=== PATIENT | male | born 1960 | race African-American/Black ===

== ENCOUNTER 2017-05-20 23:53 | Emergency (ER) | payer OTHER ==
[~2017-05-20] VITALS: Ht 175.3 cm; Wt 102.1 kg
[~2017-05-20 23:53] MED LIST: ANUSOL-HC25 MG RECTAL; COLACE100 MG ORAL; MYLANTA GAS MA125 MG PO; NKM; OMEPRAZOLE40 M1 ORAL; RANITIDINE HCL150 MG ORAL
[2017-05-21 00:10] VITALS: BP 123/67
[2017-05-21] MEDS ORDERED: MEDROL4 M1 PO (00:26)
[2017-05-21] MEDS ORDERED: HYDROCODON-ACE1 EA15 ORAL (00:26)
--- NOTE | 2017-05-21 00:27 | Emergency Room Report ---
History of Present Illness General Chief Complaint: Back Pain-No Injury Source: Patient Present Illness HPI This is a 57-year-old male with history of back pain and sciatica. He was doing well for about a year since his surgery. The last couple days complaining of left lower back pain now writing down his left leg. He took a [place] from his and is not helping. No fever chills but no nausea no vomiting. No incontinence of bowel or urine. Pain is 9/10. Worse with certain position. Allergies: Coded Allergies: PENICILLINS (Unverified Allergy, Unknown, 05/24/14) Patient History Past Medical History: see triage record, old chart reviewed Past Surgical History: other Pertinent Family History: none Social History: Denies: smoking Immunizations: other Reviewed Nursing Documentation: PMH: Agreed, PSxH: Agreed Nursing Documentation-PMH Hx Cardiac Problems: Yes - chest pain Review of Systems Eye: Denies: eye pain, blurred vision ENT: Denies: ear pain, nose congestion, throat swelling Respiratory: Denies: cough, shortness of breath Cardiovascular: Denies: chest pain, palpitations Gastrointestinal: Denies: abdominal pain, diarrhea, nausea, vomiting Musculoskeletal: Reports: back pain, Denies: joint pain Skin: Denies: rash Neurological: Denies: headache, numbness Endocrine: Denies: increased thirst, increased urine Hematologic/Lymphatic: Denies: easy bruising All Other Systems: negative except mentioned in HPI Physical Exam Vital Signs Date Time Temp Pulse Resp B/P (MAP) Pulse Ox O2 Delivery O2 Flow Rate FiO2 05/21/17 00:08 97.9 77 18 123/67 98 Room Air vitals normal Sp02 EP Interpretation: reviewed, normal General Appearance: well appearing, no apparent distress, alert Head: normocephalic, atraumatic Eyes: bilateral eye PERRL, bilateral eye EOMI ENT: hearing grossly normal, normal pharynx Neck: full range of motion, supple, no meningismus Respiratory: chest non-tender, lungs clear, normal breath sounds Cardiovascular #1: regular rate, rhythm, no murmur Gastrointestinal: normal bowel sounds, non tender, no mass, no organomegaly, no bruit, non-distended Musculoskeletal: back normal, normal range of motion, other - Tenderness over the left lower back. No step-off. Neurologic: alert, oriented x3 Psychiatric: mood/affect normal Skin: warm/dry Medical Decision Making Diagnostic Impression: Primary Impression: Sciatica of left side ER Course Patient with back pain consistent with sciatica. No red flags indicate cauda equina syndrome, spinal epidural abscess or neoplastic process. Better after medication. We'll discharge home. Last Vital Signs Date Time Temp Pulse Resp B/P (MAP) Pulse Ox O2 Delivery O2 Flow Rate FiO2 05/21/17 00:10 97.9 71 18 123/67 98 Room Air Status: improved Disposition: HOME, SELF-CARE Condition: Stable Scripts Hydrocodone/Acetaminophen 5-325* (HYDROCODONE/ACETAMINOPHEN 5-325*) 1 Each Tablet 1 TAB ORAL Q6H Y for For Pain, #30 TAB 0 Refills Prov: ERNESTO ROBBINS M.D. 05/21/17 Methylprednisolone (MEDROL) 4 Mg Tab.ds.pk 4 MG PO DAILY, #1 PACK Prov: ERNESTO ROBBINS M.D. 05/21/17 Patient Instructions: Sciatica Additional Instructions: [facility] He may benefit from an MRI if symptoms don't improve. Return if symptom worsen. ERNESTO ROBBINS M.D. May 21, 2017 00:27
[2017-05-21] MEDS ORDERED: HYDROmorphone 1mg/ml Carpuject IM ONE (00:30)
[2017-05-21 00:54] VITALS: BP 123/67
== END 2017-05-21 01:00 | disposition home or self-care (01) ==
LOC: EMR 23:59
DX: M54.42 Lumbago with sciatica, left side (principal); Z88.0 Allergy status to penicillin
CPT/HCPCS: 96372; 99284; J1170

== ENCOUNTER 2018-01-12 21:51 | Emergency (ER) | payer OTHER ==
[~2018-01-12] VITALS: Ht 175.3 cm; Wt 102.1 kg
[~2018-01-12 21:51] MED LIST changes: +HYDROCODON-ACE1 EA15 ORAL; +MEDROL4 M1 PO
[2018-01-12] MEDS ORDERED: Norco 5mg/325mg tab ORAL ONE (22:45)
[2018-01-12 23:02] VITALS: BP 122/75
--- NOTE | 2018-01-12 23:47 | Emergency Room Report ---
History of Present Illness General Chief Complaint: Head, Face, Neck Trauma Source: Patient Present Illness HPI Is a 58-year-old male who had a history of seizure as a kid. He presents with chief complaint of head injury. He was getting a phone out of the back of his truck. Next thing he knew, he was on the ground. He said he was out for about a minute or 2. He felt dizzy and nauseous. He has pain to the back of his occiput. He also has pain across his upper chest that typically over his right clavicle area. There was a small abrasion to his chest area. No bleeding. No oral trauma or incontinence of bowel or urine. Pain is 10 out of 10. Allergies: Coded Allergies: PENICILLINS (Unverified Allergy, Unknown, 05/24/14) Patient History Past Medical History: see triage record, old chart reviewed Past Surgical History: other Pertinent Family History: none Social History: Denies: smoking Immunizations: other Reviewed Nursing Documentation: PMH: Agreed; PSxH: Agreed Nursing Documentation-PMH Hx Cardiac Problems: Yes - chest pain Review of Systems Eye: Denies: eye pain, blurred vision ENT: Denies: ear pain, nose congestion, throat swelling Respiratory: Denies: cough, shortness of breath Cardiovascular: Reports: chest pain; Denies: palpitations Gastrointestinal: Denies: abdominal pain, diarrhea, nausea, vomiting Musculoskeletal: Denies: back pain, joint pain Skin: Denies: rash Neurological: Reports: headache; Denies: numbness Endocrine: Denies: increased thirst, increased urine Hematologic/Lymphatic: Denies: easy bruising All Other Systems: negative except mentioned in HPI Physical Exam Vital Signs Date Time Temp Pulse Resp B/P (MAP) Pulse Ox O2 Delivery O2 Flow Rate FiO2 01/12/18 22:28 98.2 62 18 122/75 98 Room Air 98.2 vitals normal Sp02 EP Interpretation: reviewed, normal General Appearance: well appearing, no apparent distress, alert Head: normocephalic, other - tenderness over the occiput. No hematoma. Eyes: bilateral eye PERRL, bilateral eye EOMI ENT: hearing grossly normal, normal pharynx Neck: full range of motion, supple, no meningismus Respiratory: lungs clear, normal breath sounds, other - chest wall tenderness over both clavicles. Cardiovascular #1: regular rate, rhythm, no murmur Gastrointestinal: normal bowel sounds, non tender, no mass, no organomegaly, no bruit, non-distended Musculoskeletal: back normal, gait/station normal, normal range of motion Psychiatric: mood/affect normal Skin: warm/dry Medical Decision Making Diagnostic Impression: Primary Impression: Head injury, acute Qualified Codes: S09.90XA - Unspecified injury of head, initial encounter Additional Impressions: Post-concussion vertigo Chest wall contusion Qualified Codes: S20.219A - Contusion of unspecified front wall of thorax, initial encounter ER Course Patient with soft tissue injury and head injury from a fall. No evidence of any fracture dislocation. No bleed. I see no evidence of seizure. We'll discharge home. Chest X-Ray Diagnostic Results Chest X-Ray Diagnostic Results : Chest X-Ray Ordered: Yes # of Views/Limited/Complete: 2 View Indication: Chest Pain EP Interpretation: Yes Interpretation: no consolidation, no effusion, no pneumothorax, no acute cardiopulmonary disease Impression: No acute disease Electronically Signed by: Jeremy Sousa MD CT/MRI/US Diagnostic Results CT/MRI/US Diagnostic Results : Imaging Test Ordered: CT head Impression negative per radiologist Last Vital Signs Date Time Temp Pulse Resp B/P (MAP) Pulse Ox O2 Delivery O2 Flow Rate FiO2 01/12/18 23:02 98.8 81 18 122/75 98 Room Air 98.8 Status: improved Disposition: HOME, SELF-CARE Condition: Stable Scripts Ibuprofen* (MOTRIN*) 600 Mg Tablet 600 MG ORAL THREE TIMES A DAY, #30 TAB 0 Refills Prov: JEREMY SOUSA M.D. 01/12/18 Hydrocodone/Acetaminophen 5-325* (HYDROCODONE/ACETAMINOPHEN 5-325*) 1 Each Tablet 1 TAB ORAL Q6H PRN for For Pain, #20 TAB 0 Refills Prov: JEREMY SOUSA M.D. 01/12/18 Referrals: NOT CHOSEN CHRISTOPHER/,REFERRING (PCP) Additional Instructions: Follow-up your doctor in a week. Return if symptom worsen. JEREMY SOUSA M.D. Jan 12, 2018 23:47
[2018-01-12] MEDS ORDERED: HYDROCODON-ACE1 EA15 ORAL (23:56)
[2018-01-12] MEDS ORDERED: IBUPROFEN600 MG ORAL (23:56)
[2018-01-13 00:27] VITALS: BP 127/71
--- NOTE | 2018-01-13 09:42 | Diagnostic Imaging Report ---
Indication: Trauma, status post fall today, head pain, nausea, neck pain Technique: Continuous helical CT scanning of the head was performed without intravenous contrast material. Axial and coronal 5 mm sections were generated. Radiation dose was minimized using automated exposure control Dose: Total Dose Length Product - DLP 1453.[address] Dose Index - CTDIvol(s) 70.38 mGy. Comparison: none Findings: The ventricular system is normal in size and configuration. There is no shift of midline structures. No abnormal extra-axial fluid collections are noted. There is no evidence of intracerebral bleeding. No other abnormal high or low density areas are noted within the brain. Normal lópez-white differentiation. Intact calvarium. Visualized orbits and sinuses are unremarkable. There is chronic appearing deformity of the medial left orbital wall Impression: Normal CT scan of the head without contrast material. This agrees with the preliminary interpretation provided overnight by [facility] telerad[facility] service. The CT scanner at [facility] is accredited by the [employer] and the scans are performed using protocols designed to limit radiation exposure to as low as reasonably achievable to attain images of sufficient resolution adequate for diagnostic evaluation.
--- NOTE | 2018-01-13 09:50 | Diagnostic Imaging Report ---
Indication: Chest pain Technique: One view of the chest Comparison: 05/24/2017 Findings: Lungs and pleural spaces are clear. Heart size is normal. There is slight scalloping of the left hemidiaphragm. There is no significant interim change Impression: No acute process
== END 2018-01-13 00:05 | disposition home or self-care (01) ==
LOC: EMR 22:47 → CANBEDREQ 23:47 → EMR 01-13 00:05
DX: S09.90XA Unspecified injury of head, initial encounter (principal); S20.219A Contusion of unspecified front wall of thorax, initial encounter; W19.XXXA Unspecified fall, initial encounter; Y92.89 Other specified places as the place of occurrence of the external cause; Z88.0 Allergy status to penicillin
CPT/HCPCS: 70450; 71045; 99284

== ENCOUNTER 2018-09-12 19:00 | Emergency (ER) | payer OTHER ==
[~2018-09-12] VITALS: Ht 172.7 cm; Wt 102.1 kg
[~2018-09-12 19:00] MED LIST changes: +IBUPROFEN600 MG ORAL
[2018-09-12] MEDS ORDERED: SIMVASTATIN5 MG ORAL (19:07)
--- NOTE | 2018-09-12 19:36 | NUR ---
ED Nurse Note: Pimples on his face with pus x 1 week after using a new kind of cream, pt tried to squeeze pimple and new ones develop. AOx4, VSS. Will cont to monitor.
[2018-09-12 19:45] VITALS: BP 125/74
[2018-09-12] MEDS ORDERED: ROBAXIN500 MG PO (19:50)
[2018-09-12] MEDS ORDERED: ACYCLOVIR400 MG ORAL (19:50)
[2018-09-12] MEDS ORDERED: BACITRACIN-P28.35 GM TP (19:50)
--- NOTE | 2018-09-12 19:51 | Emergency Room Report ---
History of Present Illness General Chief Complaint: General Complaint Source: Patient Present Illness HPI 58-year-old male patient presents the ER complaining of bump on lip and back pain. Reports bump on the past been present for the past several days. Reports painful. Reports drainage. 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 Denies blisters. Also complaining of low back pain on the left side. Reports history of back pain problems for the past month. Denies acute injury or trauma. Reports that he lifts boxes a lot in his job. Denies bowel or bladder incontinence. Denies radiation of pain symptoms. Denies history of IV drug use or cancer. Denies dysuria, hematuria. Denies photophobia. Denies vision changes. Denies abdominal pain. Allergies: Coded Allergies: PENICILLINS (Unverified Allergy, Unknown, 05/24/14) Patient History Past Medical History: see triage record Reviewed Nursing Documentation: PMH: Agreed; PSxH: Agreed Nursing Documentation-PMH Hx Cardiac Problems: Yes - chest pain, HYPERLIPIDEMIA Review of Systems All Other Systems: negative except mentioned in HPI Physical Exam Vital Signs Date Time Temp Pulse Resp B/P (MAP) Pulse Ox O2 Delivery O2 Flow Rate FiO2 09/12/18 19:05 98.2 86 19 129/79 100 Room Air Sp02 EP Interpretation: reviewed, normal General Appearance: well appearing, no apparent distress, alert, GCS 15, non- toxic Head: normocephalic, atraumatic Eyes: bilateral eye normal inspection, bilateral eye PERRL ENT: hearing grossly normal, normal pharynx, no angioedema, normal voice, TMs + canals normal, uvula midline, moist mucus membranes Neck: full range of motion, no meningismus, no bony tend Respiratory: lungs clear, normal breath sounds, no rhonchi, no respiratory distress, no accessory muscle use, no wheezing, speaking full sentences Cardiovascular #1: regular rate, rhythm, no edema Gastrointestinal: non tender, soft, no mass, non-distended, no guarding, no rebound Genitourinary: no CVA tenderness Musculoskeletal: back normal, digits/nails normal, gait/station normal, normal range of motion, non-tender Neurologic: alert, oriented x3, responsive, motor strength/tone normal, SLR negative, sensory intact, cerebellar normal, normal gait, speech normal Skin: other - Obvious le[place] on left upper lip, no surrounding erythema or edema, no cold sores, no blisters; small drained pustule on the left cheek, no surrounding erythema or edema, no crusting, no bleeding, no vesicles Lymphatic: no adenopathy Medical Decision Making PA Attestation Dr. Larsen is my supervising Physician whom patient management has been discussed with. Diagnostic Impression: Primary Impression: Lip lesion Additional Impression: Back pain ER Course Pt presents to ED c/o back pain. DDX considered but are not limited to sprain, strain, cauda equine, epidural abscess, AAA, spinal cord compression, kidney stones, atopic dermatitis, gingivostomatitis, pharyngitis, acne, shingles, cold sore. Low suspicion for cauda equina, no bowel or bladder incontinence or retention. No fever, nontoxic appearing, no radiation of pain, low suspicion for epidural mass. No abdominal pain, no blood pressure elevation, nontoxic appearing, low suspicion for AAA. VITAL SIGNS are WNL, patient is afebrile ER COURSE: Likely acne on lip and face, advised patient on warm compresses and followup with dermatology. Advised on use of topical medication. Will provide patient with ayclovir due to hx of hsv. Likely chronic back pain, no acute trauma or injury, no other complaints, does not require imaging or UA at this time. Will discharge home with medication. Followup with PCP and discuss referral to PT/ortho/pain management and further imaging as needed. ER precautions given. DISCHARGE: At this time pt. is stable for d/c to home. At this time patient is resting comfortably, in no acute distress, nontoxic appearing, smiling and talking without difficulty. Will provide printed patient care instructions, and any necessary prescriptions. Patient instructed to follow with primary care provider for further treatment and referral as needed. Care plan and follow up instructions have been discussed with the patient prior to discharge. Patient reports understanding and agreement to treatment plan. Patient questions asked and answered. ER precautions given, patient instructed to return to ER immediately for any new or worsening of symptoms. - Please note that this Emergency Department Report was dictated using [employer] clerk technology software, occasionally this can lead to erroneous entry secondary to interpretation by the dictation equipment. Last Vital Signs Date Time Temp Pulse Resp B/P (MAP) Pulse Ox O2 Delivery O2 Flow Rate FiO2 09/12/18 19:45 86 19 Room Air 09/12/18 19:45 98.2 125/74 99 Status: improved Disposition: HOME, SELF-CARE Condition: Stable Scripts Methocarbamol* (ROBAXIN*) 500 Mg Tablet 500 MG PO TID, #21 TAB 0 Refills Prov: Liborio Torres 09/12/18 Bacitracin/Polymyxin B Sulfate (BACITRACIN-POLYMYXIN OINTMENT) 28.35 Gm Oint...g. 1 APPLIC TP BID, #28 GM Prov: Liborio Torres 09/12/18 Acyclovir* (ACYCLOVIR*) 400 Mg Tablet 400 MG ORAL FIVE TIMES A DAY for 7 Days, #35 TAB Prov: Liborio Torres 09/12/18 Patient Instructions: Acne, [id number], Back Pain, Adult, Cold Sore, Easy-to- Read Additional Instructions: Patient instructed to follow up with primary care provider 3-5 and discuss further referral and imaging at that time. Follow-up with retail sales representative. Apply warm compresses. Keep clean and dry. Patient instructed on rest, ice and heat. Do not take muscle relaxant prior to drinking, driving, or operating heavy machinery. Take medications as directed. Patient questions asked and answered. ER precautions given, patient instructed to return to ER immediately for any new or worsening of symptoms. [facility] [address] [facility] [address] [facility], [id number] [email or web address] Liborio Torres Sep 12, 2018 19:51
[2018-09-12 19:57] VITALS: BP 125/74
--- NOTE | 2018-09-12 19:57 | NUR ---
ER DISCHARGE NOTE: Patient is cleared to be discharged per ERMD, pt is aox4, on room air, with stable vital signs. pt was given dc and prescription instructions, pt was able to verbalize understanding, pt id band removed. pt is able to ambulate with steady gait. pt took all belongings.ED Nurse Note:
== END 2018-09-12 19:57 | disposition home or self-care (01) ==
LOC: EMR 19:32
DX: K13.0 Diseases of lips (principal); M54.9 Dorsalgia, unspecified; E78.5 Hyperlipidemia, unspecified; Z88.0 Allergy status to penicillin
CPT/HCPCS: 99283

== ENCOUNTER 2018-10-11 10:13 | Emergency (ER) | payer OTHER ==
[~2018-10-11] VITALS: Ht 172.7 cm; Wt 102.1 kg
[~2018-10-11 10:13] MED LIST changes: +ACYCLOVIR400 MG ORAL; +BACITRACIN-P28.35 GM TP; +ROBAXIN500 MG PO; +SIMVASTATIN5 MG ORAL
[2018-10-11 10:37] VITALS: BP 134/79
--- NOTE | 2018-10-11 10:38 | NUR ---
ED Nurse Note: Pt from home presents to ED with upper abd pain that radiates to his back started yesterday. Denies vomiting and diarrhea but feels nauseous. Last bowel movement this morning. Abdomen soft with bowel sounds. Pt is AAO x4, ambulates with steady gait. VSS.
[2018-10-11] MEDS ORDERED: Isovue-300 100ml vial INJ PRN (11:00)
--- NOTE | 2018-10-11 11:00 | NUR ---
ED Nurse Note: Blood/urine collected and sent.
[2018-10-11 11:10] LABS: BASOPHILS % (AUTO) 1.6 % (0.0-2.0); EOSINOPHILS % (AUTO) 1.4 % (0.0-3.0); HEMATOCRIT 42.5 % (42.0-52.0); HEMOGLOBIN 14.5 G/DL (14.2-18.0); LYMPHOCYTES % (AUTO) 32.6 % (20.0-45.0); MEAN CORPUSCULAR VOLUME 94 FL (80-99); MONOCYTES % (AUTO) 14.6 % (1.0-10.0); NEUTROPHILS % (AUTO) 49.8 % (45.0-75.0); PLATELET COUNT 218 K/UL (150-450); RED BLOOD COUNT 4.52 M/UL (4.70-6.10)
--- NOTE | 2018-10-11 11:15 | NUR ---
ED Nurse Note: Dr Larsen at the bed side.
[2018-10-11 11:16] LABS: APPEARANCE,URINE CLEAR; BILIRUBIN, URINE NEGATIVE (NEGATIVE); COLOR,URINE PALE YELLOW; GLUCOSE, URINE (UA) NEGATIVE (NEGATIVE); KETONES,URINE NEGATIVE (NEGATIVE); LEUKOCYTE ESTERASE ,URINE NEGATIVE (NEGATIVE); NITRITE,URINE NEGATIVE (NEGATIVE); PH,URINE 7 (4.5-8.0); PROTEIN,URINE NEGATIVE (NEGATIVE); UROBILINOGEN,URINE NORMAL MG/DL (0.0-1.0)
[2018-10-11 11:24] LABS: ANION GAP 9 mmol/L (5-15); BLOOD UREA NITROGEN 15 mg/dL (7-18); CALCIUM 9.3 MG/DL (8.5-10.1); CARBON DIOXIDE 28 MMOL/L (21-32); CHLORIDE 106 MMOL/L (98-107); CREATININE 1.1 MG/DL (0.55-1.30); POTASSIUM 4.2 MMOL/L (3.5-5.1); SODIUM 143 MMOL/L (136-145)
[2018-10-11] MEDS ORDERED: Ketorolac 30mg Inj IV ONE (11:30)
[2018-10-11 11:31] LABS: ALANINE AMINOTRANSFERASE 32 U/L (12-78); ALBUMIN 3.6 G/DL (3.4-5.0); ALKALINE PHOSPHATASE 66 U/L (46-116); ASPARTATE AMINO TRANSFERASE 21 U/L (15-37); BILIRUBIN,TOTAL 0.3 MG/DL (0.2-1.0); CREATINE KINASE 411 U/L (26-308)
--- NOTE | 2018-10-11 11:55 | Emergency Room Report ---
History of Present Illness General Chief Complaint: Abdominal Pain Source: Patient Present Illness HPI Patient states that he has had several weeks of back pain. He states that since yesterday he has developed abdominal pain. He states the pain is crampy and severe at times. He feels like the pain is deep in his abdomen. He states he is also had urinary frequency all night. He denies fever or chills. He denies nausea or vomiting. He states he had a normal bowel movement today without difficulty. He denies dysuria or hematuria. He denies chest pain or shortness of breath. He has no other complaints. Allergies: Coded Allergies: PENICILLINS (Unverified Allergy, Unknown, 05/24/14) Patient History Past Medical History: other - HLP, borderline DM Past Surgical History: other - Spinal surgery Social History: Denies: smoking, alcohol use, drug use Reviewed Nursing Documentation: PMH: Agreed; PSxH: Agreed Nursing Documentation-PMH Hx Cardiac Problems: Yes - chest pain, HYPERLIPIDEMIA Review of Systems All Other Systems: negative except mentioned in HPI Physical Exam Vital Signs Date Time Temp Pulse Resp B/P (MAP) Pulse Ox O2 Delivery O2 Flow Rate FiO2 10/11/18 10:25 97.9 66 16 138/84 98 Room Air Sp02 EP Interpretation: reviewed, normal General Appearance: no apparent distress, alert, GCS 15, non-toxic Head: normocephalic, atraumatic Eyes: bilateral eye normal inspection, bilateral eye PERRL ENT: hearing grossly normal, normal pharynx, no angioedema, normal voice Neck: full range of motion, supple/symm/no masses Respiratory: chest non-tender, lungs clear, normal breath sounds, no respiratory distress, no retraction, no accessory muscle use, speaking full sentences Cardiovascular #1: regular rate, rhythm, no edema Gastrointestinal: normal bowel sounds, soft, non-distended, no guarding, no rebound, tenderness - TTP in the mid abdomen Rectal: deferred Musculoskeletal: back normal, gait/station normal, normal range of motion, non- tender Neurologic: alert, oriented x3, responsive, motor strength/tone normal, sensory intact, speech normal Psychiatric: judgement/insight normal, memory normal, mood/affect normal, no suicidal/homicidal ideation Skin: normal color, no rash, warm/dry, well hydrated Medical Decision Making Diagnostic Impression: Primary Impression: Diverticulits vs. colitis ER Course This patient has inflammatory findings of the descending colon. This is diffusely through the ascending colon. This could be a diverticulitis because there are some associated diverticula, however, the swelling is diffuse and is more consistent with colitis. The treatment is similar. I will go ahead and treat this patient with a course of Cipro and Flagyl. The patient was also given close return precautions. Overall he is nontoxic and well-appearing. I feel he is appropriate for outpatient therapy at this time. The patient was comfortable with the plan. He plans to return for any worsening symptoms. Laboratory Tests Test 10/11/18 10:50 White Blood Count 6.0 K/UL (4.8-10.8) Red Blood Count 4.52 M/UL (4.70-6.10) L Hemoglobin 14.5 G/DL (14.2-18.0) Hematocrit 42.5 % (42.0-52.0) Mean Corpuscular Volume 94 FL (80-99) Mean Corpuscular Hemoglobin 32.0 PG (27.0-31.0) H Mean Corpuscular Hemoglobin Concent 34.1 G/DL (32.0-36.0) Red Cell Distribution Width 12.0 % (11.6-14.8) Platelet Count 218 K/UL (150-450) Mean Platelet Volume 6.6 FL (6.5-10.1) Neutrophils (%) (Auto) 49.8 % (45.0-75.0) Lymphocytes (%) (Auto) 32.6 % (20.0-45.0) Monocytes (%) (Auto) 14.6 % (1.0-10.0) H Eosinophils (%) (Auto) 1.4 % (0.0-3.0) Basophils (%) (Auto) 1.6 % (0.0-2.0) Prothrombin Time 10.5 SEC (9.30-11.50) Prothrombin Time INR 1.0 (0.9-1.1) PTT 31 SEC (23-33) Urine Color Pale yellow Urine Appearance Clear Urine pH 7 (4.5-8.0) Urine Specific [place] 1.005 (1.005-1.035) Urine Protein Negative (NEGATIVE) Urine Glucose (UA) Negative (NEGATIVE) Urine Ketones Negative (NEGATIVE) Urine Blood Negative (NEGATIVE) Urine Nitrite Negative (NEGATIVE) Urine Bilirubin Negative (NEGATIVE) Urine Urobilinogen Normal MG/DL (0.0-1.0) Urine Leukocyte Esterase Negative (NEGATIVE) Sodium Level 143 MMOL/L (136-145) Potassium Level 4.2 MMOL/L (3.5-5.1) Chloride Level 106 MMOL/L (98-107) Carbon Dioxide Level 28 MMOL/L (21-32) Anion Gap 9 mmol/L (5-15) Blood Urea Nitrogen 15 mg/dL (7-18) Creatinine 1.1 MG/DL (0.55-1.30) Estimate Glomerular Filtration Rate > 60 mL/min (>60) Glucose Level 106 MG/DL (74-106) Calcium Level 9.3 MG/DL (8.5-10.1) Total Bilirubin 0.3 MG/DL (0.2-1.0) Aspartate Amino Transferase (AST) 21 U/L (15-37) Alanine Aminotransferase (ALT) 32 U/L (12-78) Alkaline Phosphatase 66 U/L (46-116) Total Creatine Kinase 411 U/L (26-308) H Troponin I 0.015 ng/mL (0.000-0.056) Total Protein 7.3 G/DL (6.4-8.2) Albumin 3.6 G/DL (3.4-5.0) Globulin 3.7 g/dL Albumin/Globulin Ratio 1.0 (1.0-2.7) Lipase 116 U/L (73-393) CT/MRI/US Diagnostic Results CT/MRI/US Diagnostic Results : Imaging Test Ordered: CT abd/pelvis Impression Impression: Limited assessment of the GI tract, due to lack of enteric contrast administration Mild wall thickening of and indistinctness of the fat surrounding the ascending colon. Given the presence of colonic diverticula in this area, findings could represent acute diverticulitis. However, the wall thickening is more generalized , and more likely represents colitis, nonspecific as regards etiology No evidence of acute aortic pathology. Subcentimeter low-attenuation right lobe liver lesion, too small to characterize , most likely a benign simple cyst or bile hamartoma; not definitely visible on prior study. No further follow-up needed Other incidental findings noted, including right groin heterotopic ossification, minimal dependent pulmonary atelectatic changes Last Vital Signs Date Time Temp Pulse Resp B/P (MAP) Pulse Ox O2 Delivery O2 Flow Rate FiO2 10/11/18 10:37 97.9 55 20 134/79 100 Room Air Status: improved Disposition: HOME, SELF-CARE Condition: Improved Caren Larsen DO Oct 11, 2018 11:55
--- NOTE | 2018-10-11 12:18 | NUR ---
ED Nurse Note: Patient taken to CT via gurney.
[2018-10-11 12:30] VITALS: BP 145/80
--- NOTE | 2018-10-11 12:35 | NUR ---
ED Nurse Note: Pt came back from CT. VSS.
--- NOTE | 2018-10-11 12:57 | Diagnostic Imaging Report ---
Clinical Indication: Abdominal pain since yesterday, crampy and severe at times, deep in his abdomen, urinary frequency, back pain for several weeks Technique: No oral contrast utilized, per emergency room physician request. IV administration nonionic contrast. Venous phase spiral acquisition obtained through the abdomen and pelvis. Multiplanar reconstructions were generated. Total dose length product 968.43 mGycm. CTDIvol(s) 17.93 mGy. Dose reduction achieved using automated exposure control Comparison: 06/13/2016 Findings: Lack of enteric contrast limits assessment of the GI tract. There is diverticulosis of the colon, predominantly involving the ascending colon. There is mild wall thickening of the ascending colon possibly extending slightly to the transverse colon, and indistinctness of the pericolonic fat surrounding the ascending colon. No extraluminal gas or focal fluid collections are demonstrated. The appendix is normal. No small bowel distention. No free or loculated intraperitoneal gas or fluid is evident. The distal esophagus, stomach, duodenum are unremarkable. The liver demonstrates a subcentimeter low-attenuation lesion in segment 5. The gallbladder, bile ducts, pancreas, spleen, adrenals are unremarkable. No pelvic mass or adenopathy. No retroperitoneal or mesenteric mass or adenopathy. The abdominal aorta is unremarkable. The included lung bases demonstrate minimal dependent atelectatic changes posteriorly bilaterally. The bones are unremarkable. There is some heterotopic ossification anterior to the right proximal femur, also reported previously. Impression: Limited assessment of the GI tract, due to lack of enteric contrast administration Mild wall thickening of and indistinctness of the fat surrounding the ascending colon. Given the presence of colonic diverticula in this area, findings could represent acute diverticulitis. However, the wall thickening is more generalized, and more likely represents colitis, nonspecific as regards etiology No evidence of acute aortic pathology. Subcentimeter low-attenuation right lobe liver lesion, too small to characterize, most likely a benign simple cyst or bile hamartoma; not definitely visible on prior study. No further follow-up needed Other incidental findings noted, including right groin heterotopic ossification, minimal dependent pulmonary atelectatic changes The CT scanner at [facility] is accredited by the [employer] and the scans are performed using protocols designed to limit radiation exposure to as low as reasonably achievable to attain images of sufficient resolution adequate for diagnostic evaluation.
[2018-10-11] MEDS ORDERED: CIPROFLOXACIN500 M2 ORAL (14:14)
[2018-10-11] MEDS ORDERED: IBUPROFEN800 MG ORAL (14:14)
[2018-10-11] MEDS ORDERED: TRAMADOL HCL50 MG ORAL (14:14)
[2018-10-11] MEDS ORDERED: METRONIDAZOLE500 MG ORAL (14:14)
[2018-10-11 14:22] VITALS: BP 154/90
--- NOTE | 2018-10-11 14:22 | NUR ---
ER DISCHARGE NOTE: Patient is cleared to be discharged per ERMD, pt is aox4, on room air, with stable vital signs. pt was given dc and prescription instructions, pt was able to verbalize understanding, pt id band and iv site removed without complications. pt is able to ambulate with steady gait. pt took all belongings.
== END 2018-10-11 14:22 | disposition home or self-care (01) ==
LOC: EMR 11:43
DX: R10.9 Unspecified abdominal pain (principal); M54.9 Dorsalgia, unspecified; E78.5 Hyperlipidemia, unspecified; E11.9 Type 2 diabetes mellitus without complications; Z88.0 Allergy status to penicillin; R35.0 Frequency of micturition; K57.90 Diverticulosis of intestine, part unspecified, without perforation or abscess without bleeding
CPT/HCPCS: 36415; 74177; 80053; 81003; 82550; 83690; 84484; 85025; 85610; 85730; 96361; 96374; 99284; J1885; Q9967

== ENCOUNTER 2018-11-01 22:29 | Emergency (ER) | payer OTHER ==
[~2018-11-01] VITALS: Ht 172.7 cm; Wt 103.4 kg
[~2018-11-01 22:29] MED LIST changes: +CIPROFLOXACIN500 M2 ORAL; +IBUPROFEN800 MG ORAL; +METRONIDAZOLE500 MG ORAL; +TRAMADOL HCL50 MG ORAL
[2018-11-01 22:30] VITALS: BP 132/86
[2018-11-01] MEDS ORDERED: ATORVASTATIN CA20 MG ORAL (22:34)
--- NOTE | 2018-11-01 22:37 | NUR ---
ED Nurse Note: Received report. Pt from home, ambulatory, AAOx4, c/o tender/swollen nose, recurrent styes, blackheads within nose, on left eye and abscess under left armpit. Will carry out ER MD's orders.
[2018-11-01] MEDS ORDERED: Bactrim-DS 1 tab ORAL ONE (23:00)
[2018-11-01] MEDS ORDERED: BACTRIM DS TAB1 EAC1 ORAL (23:07)
[2018-11-01] MEDS ORDERED: IBUPROFEN600 MG ORAL (23:07)
[2018-11-01] MEDS ORDERED: MUPIROCIN22 GM TOPIC (23:07)
--- NOTE | 2018-11-01 23:08 | Emergency Room Report ---
History of Present Illness General Chief Complaint: General Complaint Source: Patient Present Illness HPI Is a 58-year-old male with a history of hyperlipidemia. He presents with chief complaint of nose pain, chin pain, left arm pain. Onset for last 2 days. No fever chills but no nausea no vomiting. No drainage. Denies any other complaint. Pain is 8 out of 10. Allergies: Coded Allergies: PENICILLINS (Unverified Allergy, Unknown, 05/24/14) Patient History Past Medical History: see triage record, old chart reviewed Past Surgical History: none Pertinent Family History: none Social History: Denies: smoking Immunizations: other Reviewed Nursing Documentation: PMH: Agreed; PSxH: Agreed Nursing Documentation-PMH Past Medical History: No History, Except For Hx Cardiac Problems: Yes - hyperlidemia Review of Systems Eye: Denies: eye pain, blurred vision ENT: Denies: ear pain, nose congestion, throat swelling Respiratory: Denies: cough, shortness of breath Cardiovascular: Denies: chest pain, palpitations Gastrointestinal: Denies: abdominal pain, diarrhea, nausea, vomiting Musculoskeletal: Denies: back pain, joint pain Skin: Reports: lesions; Denies: rash Neurological: Denies: headache, numbness Endocrine: Denies: increased thirst, increased urine Hematologic/Lymphatic: Denies: easy bruising All Other Systems: negative except mentioned in HPI Physical Exam Vital Signs Date Time Temp Pulse Resp B/P (MAP) Pulse Ox O2 Delivery O2 Flow Rate FiO2 11/01/18 22:30 98.1 97 18 95 Room Air vitals unremarkable Sp02 EP Interpretation: reviewed, normal General Appearance: well appearing, no apparent distress, alert Head: normocephalic, atraumatic Eyes: bilateral eye PERRL, bilateral eye EOMI ENT: hearing grossly normal, normal pharynx Neck: full range of motion, supple, no meningismus Respiratory: chest non-tender, lungs clear, normal breath sounds Cardiovascular #1: regular rate, rhythm, no murmur Gastrointestinal: normal bowel sounds, non tender, no mass, no organomegaly, no bruit, non-distended Musculoskeletal: back normal, gait/station normal, normal range of motion Neurologic: alert, oriented x3 Psychiatric: mood/affect normal Skin: warm/dry, other - Nose: He has a small pinpoint abscess to the septum and tip of the nose on the right side. Procedures Incision and Drainage Incision and Drainage : Consent: Verbal Site: Left axilla and chin Blade Size: 11 I & D Procedure: betadine prep Wound Location: face, upper extremity Anesthesia: 1% Lidocaine Volume Anesthetic (ccs): 2 Patient Tolerated: Well Complications: None Progress Area clean with Betadine. Local anesthetic 1% lidocaine without epinephrine injected. I made a small incision to the chin and left axilla. There is only scant amount of pus expressed. Patient tolerated procedure without any complication. Medical Decision Making Diagnostic Impression: Primary Impression: Abscess of nose Additional Impressions: Abscess of chin Abscess of axilla, left ER Course Patient with superficial abscess. No deep infection. Most likely MRSA. We'll discharge home. Last Vital Signs Date Time Temp Pulse Resp B/P (MAP) Pulse Ox O2 Delivery O2 Flow Rate FiO2 11/01/18 22:52 97 18 Room Air 11/01/18 22:30 98.1 95 Status: improved Disposition: HOME, SELF-CARE Condition: Stable Scripts Mupirocin* (MUPIROCIN*) 22 Gm Oint...g. 1 APPLIC TOPIC THREE TIMES A DAY, #22 GM Prov: Jeremy Sousa MD 11/01/18 Ibuprofen* (MOTRIN*) 600 Mg Tablet 600 MG ORAL THREE TIMES A DAY, #30 TAB 0 Refills Prov: Jeremy Sousa MD 11/01/18 Trimethoprim/Sulfamethoxazole 160/800* (BACTRIM DS TABLET*) 1 Each Tablet 1 TAB ORAL Q12H, #14 TAB 0 Refills Prov: Jeremy Sousa MD 11/01/18 Referrals: [facility],REFERRING (PCP) Additional Instructions: Follow-up with your in 2 to 3 days for recheck. Keep wound clean. Clean with hydrogen peroxide first and then apply antibiotic ointment. Return if worse. Jeremy Sousa MD November 01, 2018 23:08
[2018-11-01] MEDS ORDERED: Bacitracin Oint UD TOPIC ONE (23:25)
[2018-11-01] MEDS ORDERED: Bactrim-DS 1 tab ONE (23:31)
--- NOTE | 2018-11-01 23:32 | NUR ---
ED Nurse Note: Pt cleared by health care Provider for discharge. DC instructions/prescription was given and explained to pt and verbalized understanding of teachings. All medical deviecs such as ID band removed. Pt is AAO x4, ambulatory and left with all personal belongings.
== END 2018-11-01 23:17 | disposition home or self-care (01) ==
LOC: EMR 22:51
DX: J34.0 Abscess, furuncle and carbuncle of nose (principal); L02.01 Cutaneous abscess of face; L02.412 Cutaneous abscess of left axilla; E78.5 Hyperlipidemia, unspecified; Z88.0 Allergy status to penicillin
CPT/HCPCS: 99283

== ENCOUNTER 2019-05-06 23:35 | Emergency (ER) | payer OTHER ==
[~2019-05-06] VITALS: Ht 175.3 cm; Wt 100.2 kg
[~2019-05-06 23:35] MED LIST changes: +ATORVASTATIN CA20 MG ORAL; +BACTRIM DS TAB1 EAC1 ORAL; +MUPIROCIN22 GM TOPIC
--- NOTE | 2019-05-06 23:49 | NUR ---
ED Nurse Note: pt presents to ED with an abscess in his R underarm x3 days. pt rates the px 5/10 that hurts when his clothes rub agaisnt it. pt has had a similar problem in the past with an abscess in his left underarm. pt reports he put cold sore gel on the abscess and it helped with the px. the abscess is 1cm long, red and swollen. pt states he felt "something hard" in it.
[2019-05-06 23:52] VITALS: BP 129/82
[2019-05-07] MEDS ORDERED: BACTRIM DS TAB1 EAC1 ORAL (00:03)
--- NOTE | 2019-05-07 00:04 | Emergency Room Report ---
History of Present Illness General Chief Complaint: Skin Rash/Abscess Source: Patient Present Illness HPI Is a 59-year-old male with no significant past medical history. Presents with an abscess to his left armpit. Onset for last 3 days. He try to squeeze it. Nothing coming out. Tender to palpation. Some swelling. No drainage. No fever chills. Has history of abscess in the past. Allergies: Coded Allergies: PENICILLINS (Unverified Allergy, Unknown, 05/24/14) Patient History Past Medical History: see triage record, old chart reviewed Past Surgical History: none Pertinent Family History: none Social History: Denies: smoking Immunizations: other Reviewed Nursing Documentation: PMH: Agreed; PSxH: Agreed Nursing Documentation-PMH Past Medical History: No Stated History Hx Cardiac Problems: Yes - hyperlidemia Review of Systems Eye: Denies: eye pain, blurred vision ENT: Denies: ear pain, nose congestion, throat swelling Respiratory: Denies: cough, shortness of breath Cardiovascular: Denies: chest pain, palpitations Gastrointestinal: Denies: abdominal pain, diarrhea, nausea, vomiting Musculoskeletal: Denies: back pain, joint pain Skin: Denies: rash Neurological: Denies: headache, numbness Endocrine: Denies: increased thirst, increased urine Hematologic/Lymphatic: Denies: easy bruising All Other Systems: negative except mentioned in HPI Physical Exam Vital Signs Date Time Temp Pulse Resp B/P (MAP) Pulse Ox O2 Delivery O2 Flow Rate FiO2 05/06/19 23:39 97.9 79 18 129/82 (98) 96 Room Air Vitals normal Sp02 EP Interpretation: reviewed, normal General Appearance: well appearing, no apparent distress, alert Head: normocephalic, atraumatic Eyes: bilateral eye PERRL, bilateral eye EOMI ENT: hearing grossly normal, normal pharynx Neck: full range of motion, supple, no meningismus Respiratory: chest non-tender, lungs clear, normal breath sounds Cardiovascular #1: regular rate, rhythm, no murmur Gastrointestinal: normal bowel sounds, non tender, no mass, no organomegaly, no bruit, non-distended Musculoskeletal: back normal, gait/station normal, normal range of motion, other - Right axilla: There is a small indurated area about 1 cm. Psychiatric: mood/affect normal Procedures Incision and Drainage Incision and Drainage : Consent: Verbal Site: Right axilla Blade Size: 11 I & D Procedure: betadine prep Wound Location: upper extremity Anesthesia: 1% Lidocaine Volume Anesthetic (ccs): 3 Patient Tolerated: Well Complications: None Progress Cleaned with Betadine. Local anesthetic with 1% lidocaine. I made a 1 cm incision. Small amount of pus expressed. Likely the area explore broken up. Dressing placed. Patient tolerated seizure without any problem. Medical Decision Making Diagnostic Impression: Primary Impression: Axillary abscess ER Course This patient presents with small superficial abscess to the right axilla. Most likely MRSA. No evidence of deep infection or necrotizing fasciitis. Will discharge home. Last Vital Signs Date Time Temp Pulse Resp B/P (MAP) Pulse Ox O2 Delivery O2 Flow Rate FiO2 05/06/19 23:52 97.9 18 129/82 96 Room Air 05/06/19 23:39 79 Status: improved Disposition: HOME, SELF-CARE Condition: Stable Scripts Trimethoprim/Sulfamethoxazole 160/800* (BACTRIM DS TABLET*) 1 Each Tablet 1 TAB ORAL Q12H, #14 TAB 0 Refills Prov: Jeremy Sousa MD 05/07/19 Patient Instructions: Abscess Additional Instructions: Keep Wound clean. Clean first with hydrogen peroxide and then apply antibiotic ointment. Follow-up with your doctor in 3 to 5 days for recheck. Return if worse. Jeremy Sousa MD May 07, 2019 00:04
[2019-05-07 00:10] VITALS: BP 129/82
--- NOTE | 2019-05-07 00:10 | NUR ---
ER DISCHARGE NOTE: Patient is cleared to be discharged per ERMD, pt is aox4, on room air, with stable vital signs. pt was given dc and prescription instructions, pt was able to verbalize understanding, pt id band removed without complications. pt is able to ambulate with steady gait. pt took all belongings.
== END 2019-05-07 00:10 | disposition home or self-care (01) ==
LOC: EMR 05-07 00:05
DX: L02.411 Cutaneous abscess of right axilla (principal); E78.5 Hyperlipidemia, unspecified; Z88.0 Allergy status to penicillin
CPT/HCPCS: 99283

== ENCOUNTER 2019-11-25 02:04 | Emergency (ER) | payer OTHER ==
[~2019-11-25] VITALS: Ht 172.7 cm; Wt 104.3 kg
[2019-11-25] MEDS ORDERED: Dicyclomine HCl 10mg/5ml oral soln ORAL ONE (02:30)
[2019-11-25] MEDS ORDERED: Lidocaine 2% Visc 15ml soln ORAL ONE (02:30)
[2019-11-25] MEDS ORDERED: Mylanta II UD 30ml ORAL ONE (02:30)
[2019-11-25 03:00] VITALS: BP 123/74
[2019-11-25 03:16] LABS: BASOPHILS % (AUTO) 1.3 % (0.0-2.0); EOSINOPHILS % (AUTO) 2.6 % (0.0-3.0); HEMATOCRIT 36.7 % (42.0-52.0); HEMOGLOBIN 13.6 G/DL (14.2-18.0); LYMPHOCYTES % (AUTO) 50.8 % (20.0-45.0); MEAN CORPUSCULAR VOLUME 88 FL (80-99); MONOCYTES % (AUTO) 15.8 % (1.0-10.0); NEUTROPHILS % (AUTO) 29.5 % (45.0-75.0); PLATELET COUNT 260 K/UL (150-450); RED BLOOD COUNT 4.18 M/UL (4.70-6.10); RED CELL DISTRIBUTION WIDTH 10.6 % (11.6-14.8); WHITE BLOOD COUNT 4.8 K/UL (4.8-10.8)
[2019-11-25 03:25] LABS: ANION GAP 9 mmol/L (5-15); BLOOD UREA NITROGEN 17 mg/dL (7-18); CALCIUM 8.8 MG/DL (8.5-10.1); CARBON DIOXIDE 28 MMOL/L (21-32); CHLORIDE 106 MMOL/L (98-107); CREATININE 1.4 MG/DL (0.55-1.30); POTASSIUM 3.9 MMOL/L (3.5-5.1); SODIUM 143 MMOL/L (136-145)
[2019-11-25 03:29] LABS: ALANINE AMINOTRANSFERASE 38 U/L (12-78); ALBUMIN 3.7 G/DL (3.4-5.0); ALBUMIN/GLOBULIN RATIO 1.1 (1.0-2.7); ALKALINE PHOSPHATASE 66 U/L (46-116); ASPARTATE AMINO TRANSFERASE 26 U/L (15-37); BILIRUBIN,TOTAL 0.4 MG/DL (0.2-1.0)
[2019-11-25] MEDS ORDERED: CIPROFLOXACIN500 M2 ORAL (04:10)
[2019-11-25] MEDS ORDERED: ONDANSETRON ODT4 MG BC (04:10)
[2019-11-25] MEDS ORDERED: IBUPROFEN600 M1 ORAL (04:10)
[2019-11-25] MEDS ORDERED: DICYCLOMINE HCL10 MG ORAL (04:10)
[2019-11-25] MEDS ORDERED: LIDODERM700 M1 TOPIC (04:10)
[2019-11-25] MEDS ORDERED: Ketorolac 30mg Inj IV ONE (04:15)
[2019-11-25 04:30] VITALS: BP 134/69
[2019-11-25 04:45] VITALS: BP 134/69
--- NOTE | 2019-11-25 05:21 | Emergency Room Report ---
History of Present Illness General Chief Complaint: Abdominal Pain Source: Patient Present Illness HPI 59-year-old male presents ED for abdominal pain. Started yesterday morning. Pain is cramping, 5 out of 10, nonradiating. Notes multiple loose stools. Notes nausea, denies vomiting. Denies fevers or chills. Denies sick contacts or recent travel. No other aggravating relieving factors. Denies any other associated symptoms Allergies: Coded Allergies: PENICILLINS (Unverified Allergy, Unknown, 05/24/14) COVID-19 Screening Contact w/high risk pt: No Recent Travel to affected area: No Experienced COVID-19 symptoms?: No COVID-19 Testing performed WE[employer]OD[employer]ER: No Patient History Past Medical History: none Past Surgical History: none Pertinent Family History: none Social History: Denies: smoking, alcohol use, drug use Immunizations: UTD Reviewed Nursing Documentation: PMH: Agreed; PSxH: Agreed Nursing Documentation-PMH Hx Cardiac Problems: Yes - hyperlidemia Review of Systems All Other Systems: negative except mentioned in HPI Physical Exam Vital Signs Date Time Temp Pulse Resp B/P (MAP) Pulse Ox O2 Delivery O2 Flow Rate FiO2 11/25/19 02:17 98.4 95 16 117/86 (96) 96 Room Air Sp02 EP Interpretation: reviewed, normal General Appearance: no apparent distress, alert, GCS 15, non-toxic Head: normocephalic, atraumatic Eyes: bilateral eye normal inspection, bilateral eye PERRL ENT: hearing grossly normal, normal pharynx, no angioedema, normal voice Neck: full range of motion, supple/symm/no masses Respiratory: chest non-tender, lungs clear, normal breath sounds, speaking full sentences Cardiovascular #1: regular rate, rhythm, no edema Cardiovascular #2: 2+ carotid (R), 2+ carotid (L), 2+ radial (R), 2+ radial (L) , 2+ dorsalis pedis (R), 2+ dorsalis pedis (L) Gastrointestinal: normal bowel sounds, non tender, soft, non-distended, no guarding, no rebound Rectal: deferred Genitourinary: normal inspection, no CVA tenderness Musculoskeletal: back normal, normal range of motion, gait/station normal, non- tender Neurologic: alert, motor strength/tone normal, oriented x3, sensory intact, responsive, speech normal Psychiatric: judgement/insight normal, memory normal, mood/affect normal, no suicidal/homicidal ideation Reflexes: 3+ bicep (R), 3+ bicep (L), 3+ tricep (R), 3+ tricep (L), 3+ knee (R) , 3+ knee (L) Lymphatic: no adenopathy Medical Decision Making Diagnostic Impression: Primary Impression: Back pain Qualified Codes: M54.5 - Low back pain; G89.29 - Other chronic pain Additional Impression: Colitis ER Course Hospital Course 59-year-old M presents to ED with cramping abdominal pain with diarrhea differential diagnosis: gastritis, SBO, cholecystits, gastroenteritis Clinical course Patient placed on stretcher. On reading intervention teacher. After initial history and physical I ordered labs, IV fluids, Zofran, GI cocktail and pepcid Labs - no leukocytosis, electrolytes ok Patient also describing back pain which is chronic. Currently on Flexeril for pain. No focal deficits. Given Lidoderm and Toradol here with pain improved. Discussed findings with patient. Safe for discharge close outpatient follow- up. States he has a PMD I feel this is a highly complex case requiring extensive working including EKG/ Rhythm strip, Xray/CT/US, Blood/urine lab work, repeat exams while in ED, and administration of strong opiates/narcotics for pain control, admission to hospital or close patient follow up. Diagnosis - back pain, colitis Stable and discharged to home with prescriptions for Cipro,Bentyl, zofran, Motrin, Lidoderm. Followup with PMD. Return to ED if symptoms recur or worsen Labs Test 11/25/19 02:30 White Blood Count 4.8 K/UL (4.8-10.8) Red Blood Count 4.18 M/UL (4.70-6.10) Hemoglobin 13.6 G/DL (14.2-18.0) Hematocrit 36.7 % (42.0-52.0) Mean Corpuscular Volume 88 FL (80-99) Mean Corpuscular Hemoglobin 32.4 PG (27.0-31.0) Mean Corpuscular Hemoglobin Concent 37.0 G/DL (32.0-36.0) Red Cell Distribution Width 10.6 % (11.6-14.8) Platelet Count 260 K/UL (150-450) Mean Platelet Volume 6.0 FL (6.5-10.1) Neutrophils (%) (Auto) 29.5 % (45.0-75.0) Lymphocytes (%) (Auto) 50.8 % (20.0-45.0) Monocytes (%) (Auto) 15.8 % (1.0-10.0) Eosinophils (%) (Auto) 2.6 % (0.0-3.0) Basophils (%) (Auto) 1.3 % (0.0-2.0) Sodium Level 143 MMOL/L (136-145) Potassium Level 3.9 MMOL/L (3.5-5.1) Chloride Level 106 MMOL/L (98-107) Carbon Dioxide Level 28 MMOL/L (21-32) Anion Gap 9 mmol/L (5-15) Blood Urea Nitrogen 17 mg/dL (7-18) Creatinine 1.4 MG/DL (0.55-1.30) Estimat Glomerular Filtration Rate > 60 mL/min (>60) Glucose Level 102 MG/DL (74-106) Calcium Level 8.8 MG/DL (8.5-10.1) Total Bilirubin 0.4 MG/DL (0.2-1.0) Aspartate Amino Transf (AST/SGOT) 26 U/L (15-37) Alanine Aminotransferase (ALT/SGPT) 38 U/L (12-78) Alkaline Phosphatase 66 U/L (46-116) Total Protein 7.1 G/DL (6.4-8.2) Albumin 3.7 G/DL (3.4-5.0) Globulin 3.4 g/dL Albumin/Globulin Ratio 1.1 (1.0-2.7) Lipase 129 U/L (73-393) Last Vital Signs Date Time Temp Pulse Resp B/P (MAP) Pulse Ox O2 Delivery O2 Flow Rate FiO2 11/25/19 04:45 98.4 71 16 134/69 98 Room Air Status: unchanged Disposition: HOME, SELF-CARE Condition: Stable Scripts Dicyclomine Hcl* (DICYCLOMINE HCL*) 10 Mg Capsule 10 MG ORAL QID, #20 CAP Prov: Vasquez Akins MD 11/25/19 Ondansetron Odt* (ZOFRAN ODT*) 4 Mg Tab.rapdis 4 MG BC EVERY 6 HOURS PRN for Nausea & Vomiting, #20 TAB 0 Refills Prov: Vasquez Akins MD 11/25/19 Ciprofloxacin Hcl* (CIPROFLOXACIN HCL*) 500 Mg Tablet 500 MG ORAL Q12H, #14 TAB 0 Refills Prov: Vasquez Akins MD 11/25/19 Lidocaine Patch* (Lidoderm Patch*) 1 Each Adh..patch 1 PATCH TOPIC DAILY, #7 PATCH 0 Refills Patch(es) may remain in place for up to 12 hours in any 24-hour period. Prov: Vasquez Akins MD 11/25/19 Ibuprofen* (MOTRIN*) 600 Mg Tablet 600 MG ORAL Q8H PRN for FOR PAIN, #30 TAB 0 Refills Prov: Vasquez Akins MD 11/25/19 Referrals: NON PHYSICIAN (PCP) Patient Instructions: Colitis Vasquez Akins MD November 25, 2019 05:21
[2019-11-25 06:58] LABS: APPEARANCE,URINE CLEAR; BILIRUBIN, URINE NEGATIVE (NEGATIVE); GLUCOSE, URINE (UA) NEGATIVE (NEGATIVE); KETONES,URINE NEGATIVE (NEGATIVE); LEUKOCYTE ESTERASE ,URINE NEGATIVE (NEGATIVE); NITRITE,URINE NEGATIVE (NEGATIVE); PH,URINE 7 (4.5-8.0); PROTEIN,URINE 1+ (NEGATIVE); UROBILINOGEN,URINE 4 MG/DL (0.0-1.0)
[2019-11-25 07:03] LABS: COLOR,URINE YELLOW
== END 2019-11-25 04:45 | disposition home or self-care (01) ==
LOC: EMR 02:46
DX: K52.9 Noninfective gastroenteritis and colitis, unspecified (principal); M54.5 Low back pain; G89.29 Other chronic pain; R11.0 Nausea; Z88.0 Allergy status to penicillin; E78.5 Hyperlipidemia, unspecified
CPT/HCPCS: 36415; 80053; 81003; 83690; 85025; 96361; 96374; 96375; 99284; J1885; J2405; J7030; S0028

== ENCOUNTER 2020-06-30 17:49 | Emergency (ER) | payer OTHER ==
[~2020-06-30] VITALS: Ht 175.3 cm; Wt 99.8 kg
[~2020-06-30 17:49] MED LIST changes: +DICYCLOMINE HCL10 MG ORAL; +IBUPROFEN600 M1 ORAL; +LIDODERM700 M1 TOPIC; +ONDANSETRON ODT4 MG BC
--- NOTE | 2020-06-30 18:10 | NUR ---
ED Nurse Note: Pt walked in to ED c/o left knee and leg pain x2 weeks. Pt stated unabke to bear weight on the affected area due to pain. AAOx4, verbally responsive. Denies redness/ warmth to the area. ERPA at bedside.
--- NOTE | 2020-06-30 18:23 | Emergency Room Report ---
History of Present Illness General Chief Complaint: Lower Extremity Injury Source: Patient Present Illness HPI 60-year-old male with a no past medical history presents today with worsening left knee pain for 2 weeks. Patient states that he notices the pain worsening on flexion of the knee and on weightbearing activity. He states he was seen recently at the [facility] and had an ultrasound, MRI, and x-ray done however they never told him the results. Severity mild, quality throbbing. Other associated signs or symptoms are swelling that began last night but has since resolved. Patient has tried Tylenol and ibuprofen with minimal relief. PMH: [Denies] PSH: [Denies] Smoking: yes Ethanol: [Denies] Allergies: Coded Allergies: PENICILLINS (Unverified Allergy, Unknown, 05/24/14) COVID-19 Screening Contact w/high risk pt: No Recent Travel to affected area: No Experienced COVID-19 symptoms?: No COVID-19 Testing performed PRODUCTION SANITIZER: No Nursing Documentation-PMH Past Medical History: No History, Except For Hx Cardiac Problems: Yes - hyperlidemia Review of Systems Narrative Review of systems: CONST: No fevers or chills, No night sweats EYES: No eye pain, vision change, eye discharge HEAD/EARS/NOSE/THROAT: No earache, sore throat, or nasal discharge. PULMONARY: No SOB, no cough, no wheezing CARDIAC: No chest pain, No palpitations, no leg swelling GI: No abdominal pain, no vomiting, no diarrhea , no melena or BRBPR : No flank pain, no dysuria, no hematuria, no frequency. MUSCULOSKELETAL: No back pain, no neck pain, no leg pain, + left knee pain. SKIN: No rash, no itching, no bruising NEUROLOGICAL: No headache, no dizziness, no paresthesia , no focal weakness. 14 point Review of Systems is otherwise negative except per HPI Physical Exam Vital Signs Date Time Temp Pulse Resp B/P (MAP) Pulse Ox O2 Delivery O2 Flow Rate FiO2 06/30/20 18:02 98.1 74 18 130/78 (95) 97 Room Air Other Organ Systems Physical Exam: GENERAL: Awake, alert, nontoxic, in no acute distress EYES: EOMI, conjunctiva without pallor HEAD/EARS/NOSE/THROAT: NCAT, oral mucosa moist, external nose and ear normal in appearance, oropharynx clear, no swelling or exudates. NECK: supple, nontender, no spasm, no JVD, no cervical adenopathy RESPIRATORY: no stridor, effort normal, no retractions, no accessory muscle use, BS clear bilaterally, no wheezes, no rhonchi, no rales, no rub. CARDIOVASCULAR: RRR, normal S1 S2, no murmur, no peripheral edema ABDOMINAL /GI: soft, nondistended, nontender, BS normal, no masses, no guarding, no Mcburneys point tenderness, no rebound, no Murpheys sign : No CVA tenderness MUSCULOSKELETAL: No swelling noted to left knee, no pain on valgus or varus stress. Pain on flexion of the knee however patient has full range of motion of the left knee joint. Negative angelina's sign. No warmth or tenderness to the knee joint. All other extremities are non-tender, no swelling, FROM, normal strength, normal sensation, cap refill <2 seconds in all extremities EXTREMITIES: no leg swelling, pulses: 2+ brisk and normal in all distal extremities SKIN: No rash, skin is warm and dry. No cyanosis, no pallor NEUROLOGICAL: awake, alert and appropriate, oriented x3, speech normal, motor and sensation grossly intact PSYCHIATRIC: Normal mood, normal affect Medical Decision Making PA Attestation Dr. Brooks Is my supervising Physician whom patient management has been discussed with. Diagnostic Impression: Primary Impression: Knee pain, left Qualified Codes: M25.562 - Pain in left knee ER Course Differential diagnosis includes ligament tear or strain, strain, DVT, septic arthritis, ascites, gout, fracture Distally the patient has capillary refill <2 seconds and strong pulses. No evidence of arterial occlusion. There is no pallor or pain out of proportion to exam. There is no swelling warmth or erythema to the left knee joint. Pt is afebrile and non toxic. Do not suspect septic arthritis, abscess or cellulitis. Negative Homans' sign. No evidence of swelling to the calf or any erythema in the surrounding extremity as well, do not suspect DVT at this time. Considered gout, however doubtful. Patient has no history of gout, no risk factors. Patient's left knee has full range of motion however he states it is painful on movement. He is walking with cane. No trauma, no injury , compartments are soft, the patient is able to bear weight with cane and has no neurologic deficits. Xray done given worsening sxs, however xray today reveals no findings. No evidence of fracture, dislocation or compartment syndrome at this time. Patient was advised to call the [facility] in the morning to obtain his MRI results. He was given Yasmani bandage while here in ER and was advised to weight- bear as tolerated. He currently walks with a cane and recommended continue usage of the cane. Patient was advised to ice and take ibuprofen as needed as well for the pain. Strict ER return precautions given. He was advised follow- up with his primary care doctor in 1 to 2 days. Patient states he understands and agrees with the plan. I had my supervising physician Dr. Brooks examined the patient as well and he agrees with the plan. Other X-Ray Diagnostic Results Other X-Ray Diagnostic Results : X-Ray ordered: Left knee xray # of Views/Limited Vs Complete: 3 View Indication: Pain PA Xray: Interpretation reviewed, by supervising MD, and agrees with findings. Interpretation: no soft tissue swelling, no fractures, other - No acute osseous abnormality Last Vital Signs Date Time Temp Pulse Resp B/P (MAP) Pulse Ox O2 Delivery O2 Flow Rate FiO2 06/30/20 18:02 98.1 74 18 130/78 (95) 97 Room Air Disposition: HOME, SELF-CARE Condition: Stable Referrals: NON PHYSICIAN (PCP) [facility] Departure Forms: Return to Work Return to Work in (Days): 2 Patient Instructions: Knee Pain Additional Instructions: Take ibuprofen every 8 hours for pain. Weight bear as tolerated. Ice the left knee. Contact the [facility] in the morning to get your MRI results. Follow up with a Primary Care Provider in 1-2 days, even if your symptoms have resolved. Return sooner to ED if new symptoms occur, or current symptoms become worse. - Please note that this Emergency Department Report was dictated using Buxfercommutator tester technology software, occasionally this can lead to erroneous entry secondary to interpretation by the dictation equipment. Nela Starks PA-C Jun 30, 2020 18:23
[2020-06-30] MEDS ORDERED: Ketorolac 30mg Inj IM ONE (18:30)
[2020-06-30 18:52] VITALS: BP 131/82
--- NOTE | 2020-06-30 18:52 | NUR ---
ED Nurse Note: Pt cleared by ERPA for discharge. DC instructions was given and explained to pt and verbalized understanding of teachings. All medical deviecs such as ID band removed. Pt is AAO x4, ambulatory and left with all personal belongings.
--- NOTE | 2020-06-30 23:44 | Diagnostic Imaging Report ---
EXAM: XR Left Knee, 3 Views CLINICAL HISTORY: 60-year-old male with a no past medical history presents today with worsening left knee pain for 2 weeks. TECHNIQUE: Three views of the left knee. COMPARISON: No relevant prior studies available. FINDINGS: Bones/joints: Enthesophyte formation along the patella. No acute fracture. No dislocation. Soft tissues: Unremarkable. IMPRESSION: No acute osseous abnormality.
== END 2020-06-30 18:52 | disposition home or self-care (01) ==
LOC: EMR 18:17
DX: M25.562 Pain in left knee (principal); E78.5 Hyperlipidemia, unspecified; Z88.0 Allergy status to penicillin
CPT/HCPCS: 73562; 96372; 99283; J1885

== ENCOUNTER → 2020-07-19 | Emergency (ER) | payer OTHER ==
[~2020-07-19] VITALS: Ht 175.3 cm; Wt 95.3 kg
[2020-07-19 03:51] VITALS: BP 156/83
--- NOTE | 2020-07-19 04:02 | NUR ---
ED Nurse Note: Recieved pt walk in from home with c/o left arm pain with weakness x 1 week worsened today, rated at 10/10, denies fevers, nausea, diarrhea, appetite changes and does c/o having intermittend dry cough, pt is awake, alert and oriented x 4, ambulates, well, pt immediately assisted with gowning, IV line placement and labs drawn, pt on cardiac monitoring, will resume care as ordered.
--- NOTE | 2020-07-19 04:04 | Emergency Room Report ---
History of Present Illness General Chief Complaint: Upper Extremity Injury Source: Patient, Medical Record Present Illness HPI Is a 60-year-old male with no past medical history. He presents with chief complaint of cough and feeling weak. Coughing been ongoing for couple days. Nonproductive nature. He said he felt tired today. No fever chills but no nausea no vomiting. Also complained of left shoulder pain that hurts to move. No trauma. Pain is mostly on the anterior medial aspect of the joint. Last week he said he has pain in his left knee on the medial aspect. It was so painful that he cannot move it. He has to lift his leg to get into the car. P ain is 7 out of 10. No exertional component. He also had diarrhea tonight. Allergies: Coded Allergies: PENICILLINS (Unverified Allergy, Unknown, 05/24/14) COVID-19 Screening Contact w/high risk pt: No Recent Travel to affected area: No Experienced COVID-19 symptoms?: No COVID-19 Testing performed DISPLAY AND BANNER DESIGNER: No Patient History Past Medical History: see triage record, old chart reviewed Past Surgical History: other Pertinent Family History: none Social History: Denies: smoking Immunizations: other Reviewed Nursing Documentation: PMH: Agreed; PSxH: Agreed Nursing Documentation-PMH Hx Cardiac Problems: Yes - hyperlidemia Review of Systems Constitutional: Reports: malaise, weakness Eye: Denies: eye pain, blurred vision ENT: Denies: ear pain, nose congestion, throat swelling Respiratory: Reports: cough, shortness of breath Cardiovascular: Denies: chest pain, palpitations Gastrointestinal: Denies: abdominal pain, diarrhea, nausea, vomiting Musculoskeletal: Reports: joint pain; Denies: back pain Skin: Denies: rash Neurological: Denies: headache, numbness Endocrine: Denies: increased thirst, increased urine Hematologic/Lymphatic: Denies: easy bruising All Other Systems: negative except mentioned in HPI Physical Exam Vital Signs Date Time Temp Pulse Resp B/P (MAP) Pulse Ox O2 Delivery O2 Flow Rate FiO2 07/19/20 03:51 98.1 76 20 156/83 (107) 98 Room Air Vitals with high blood pressure Sp02 EP Interpretation: reviewed, normal General Appearance: well appearing, no apparent distress, alert Head: normocephalic, atraumatic Eyes: bilateral eye PERRL, bilateral eye EOMI ENT: hearing grossly normal, normal pharynx Neck: full range of motion, supple, no meningismus Respiratory: chest non-tender, lungs clear, normal breath sounds Cardiovascular #1: regular rate, rhythm, no murmur Gastrointestinal: normal bowel sounds, non tender, no mass, no organomegaly, no bruit, non-distended Musculoskeletal: back normal, normal range of motion, gait/station normal, tender - Tenderness to the medial anterior aspect of his shoulder joint on the left side. Worse with movement. Psychiatric: mood/affect normal Medical Decision Making Diagnostic Impression: Primary Impression: Generalized weakness Additional Impressions: Cocaine abuse Elevated blood pressure reading ER Course Patient presents with generalized weakness and slight diarrhea. He said he felt better now. He said he felt hungry. He has an elevated monocyte count. This may be mild viral illness. Covid is negative. He also has cocaine in his system. He said that he relapsed and started using again last week. His blood pressure elevated may be secondary to cocaine use. He has no evidence of endorgan damage. Will discharge home. There is no evidence of ACS, PE, dissection to name a few. EKG Diagnostic Results Troponin ordered: Yes Rate: normal Rhythm: NSR ST Segments: other - NSST changes. Other Impression No change from 2014 Rhythm Strip Diag. Results EP Interpretation: yes Rate: 59 Rhythm: NSR, no PVC's, no ectopy Chest X-Ray Diagnostic Results Chest X-Ray Diagnostic Results : Chest X-Ray Ordered: Yes # of Views/Limited/Complete: 1 View Indication: Chest Pain EP Interpretation: Yes Interpretation: no consolidation, no effusion, no pneumothorax, no acute cardiopulmonary disease Impression: No acute disease Electronically Signed by: Jeremy Sousa MD Last Vital Signs Date Time Temp Pulse Resp B/P (MAP) Pulse Ox O2 Delivery O2 Flow Rate FiO2 07/19/20 03:51 98.1 76 20 156/83 (107) 98 Room Air Status: improved Disposition: HOME, SELF-CARE Condition: Stable Additional Instructions: Follow-up with your doctor in 7 days. Return if symptoms worsen. Jeremy Sousa MD Jul 19, 2020 04:04
[2020-07-19] MEDS: Ketorolac 30mg Inj IV ONE (04:18)
[2020-07-19 04:54] LABS: APPEARANCE,URINE CLEAR; BILIRUBIN, URINE NEGATIVE (NEGATIVE); GLUCOSE, URINE (UA) NEGATIVE (NEGATIVE); KETONES,URINE NEGATIVE (NEGATIVE); LEUKOCYTE ESTERASE ,URINE NEGATIVE (NEGATIVE); NITRITE,URINE NEGATIVE (NEGATIVE); PH,URINE 5 (4.5-8.0); UROBILINOGEN,URINE 1 MG/DL (0.0-1.0)
[2020-07-19 04:57] LABS: BASOPHILS % (AUTO) 1.5 % (0.0-2.0); EOSINOPHILS % (AUTO) 1.4 % (0.0-3.0); HEMATOCRIT 38.5 % (42.0-52.0); HEMOGLOBIN 13.1 G/DL (14.2-18.0); LYMPHOCYTES % (AUTO) 34.8 % (20.0-45.0); MEAN CORPUSCULAR VOLUME 95 FL (80-99); MONOCYTES % (AUTO) 12.5 % (1.0-10.0); NEUTROPHILS % (AUTO) 49.9 % (45.0-75.0); PLATELET COUNT 351 K/UL (150-450); RED BLOOD COUNT 4.06 M/UL (4.70-6.10); RED CELL DISTRIBUTION WIDTH 12.3 % (11.6-14.8); WHITE BLOOD COUNT 6.7 K/UL (4.8-10.8)
[2020-07-19 05:03] LABS: COLOR,URINE YELLOW; PROTEIN,URINE NEGATIVE (NEGATIVE)
[2020-07-19 05:07] LABS: ANION GAP 6 mmol/L (5-15); BLOOD UREA NITROGEN 15 mg/dL (7-18); CALCIUM 9.1 MG/DL (8.5-10.1); CARBON DIOXIDE 28 MMOL/L (21-32); CHLORIDE 106 MMOL/L (98-107); CREATININE 1.3 MG/DL (0.55-1.30); POTASSIUM 3.6 MMOL/L (3.5-5.1); SODIUM 140 MMOL/L (136-145)
[2020-07-19 05:12] LABS: ALANINE AMINOTRANSFERASE 40 U/L (12-78); ALBUMIN 3.4 G/DL (3.4-5.0); ALBUMIN/GLOBULIN RATIO 0.9 (1.0-2.7); ALKALINE PHOSPHATASE 59 U/L (46-116); ASPARTATE AMINO TRANSFERASE 36 U/L (15-37); BILIRUBIN,TOTAL 0.3 MG/DL (0.2-1.0)
--- NOTE | 2020-07-19 14:28 | Diagnostic Imaging Report ---
Indication: Shortness of breath Technique: XRAY Chest 1v Comparison: 01/12/2010 Findings: Heart size and mediastinal contours are within normal limits for AP technique. There is no focal airspace consolidation, pneumothorax or pleural effusion. Osseous structures demonstrate no acute abnormality. Elevation of the left hemidiaphragm is again noted, similar to the prior exam. Impression: No radiographic evidence of acute cardiopulmonary disease.
== END | disposition home or self-care (01) ==
LOC: EMR 04:07
DX: R53.1 Weakness (principal); F14.10 Cocaine abuse, uncomplicated; I10 Essential (primary) hypertension; E78.5 Hyperlipidemia, unspecified; Z88.0 Allergy status to penicillin; Z79.899 Other long term (current) drug therapy
CPT/HCPCS: 36415; 71045; 80053; 80307; 81003; 84484; 85025; 93005; 96374; 99284; J1885; U0002